=== PATIENT | male | born 1955 | race Caucasian/White ===

== ENCOUNTER 2019-02-01 07:54 | Day surgery (SDC) | payer OTHER ==
[~2019-02-01] VITALS: Ht 177.8 cm; Wt 86.4 kg
[~2019-02-01 07:54] MED LIST: IBUPROFEN
--- NOTE | 2019-02-01 09:45 | NUR ---
02/01/19 0945 Zara Lainez 7ML INDIGO CARMINE USED IN [facility] FOR POLYP REMOVAL. POLYP WASN'T RETRIEVED R/T TRAP NOT ATTACHED.
== END 2019-02-01 10:12 | disposition home or self-care (01) ==
LOC: ORSCSDS 07:54
PROVIDERS: Internal Medicine Gastroenterology
PROC: 0DBH8ZX Excision of Cecum, Via Natural or Artificial Opening Endoscopic, Diagnostic (ICD-10-PCS; principal; 2019-02-01 09:15)
DX: Z12.11 Encounter for screening for malignant neoplasm of colon (principal); D37.4 Neoplasm of uncertain behavior of colon; K57.30 Diverticulosis of large intestine without perforation or abscess without bleeding; K64.8 Other hemorrhoids
CPT/HCPCS: J2405; J2704; J7120

== ENCOUNTER 2022-02-11 07:48 | Day surgery (SDC) | payer OTHER ==
[~2022-02-11] VITALS: Ht 177.8 cm; Wt 87.5 kg
== END 2022-02-11 10:36 | disposition home or self-care (01) ==
LOC: ORSCSDS 07:48
PROVIDERS: Internal Medicine Gastroenterology
PROC: 0DJD8ZZ Inspection of Lower Intestinal Tract, Via Natural or Artificial Opening Endoscopic (ICD-10-PCS; principal; 2022-02-11 09:30)
DX: Z12.11 Encounter for screening for malignant neoplasm of colon (principal); Z86.010 Personal history of colon polyps; K57.50 Diverticulosis of both small and large intestine without perforation or abscess without bleeding; K64.8 Other hemorrhoids; E03.9 Hypothyroidism, unspecified; G47.30 Sleep apnea, unspecified
CPT/HCPCS: J2704

== ENCOUNTER → 2024-12-25 | Outpatient (CLI) | payer MEDICARE ==
[2024-12-25 17:21] LABS: BASOPHILS ABSOLUTE AUTO 0.02 K/mm3 (0.00-0.23); BASOPHILS PERCENT AUTO 0 % (0-2); EOSINOPHILS ABSOLUTE AUTO 0.13 K/mm3 (0.00-0.68); EOSINOPHILS PERCENT AUTO 3 % (0-6); Hematocrit 37.9 % (37.0-53.0); IMMATURE GRAN ABSOLUTE AUTO 0.01 K/mm3 (0.00-0.10); IMMATURE GRAN PERCENT AUTO 0 % (0-1); LYMPHOCYTES ABSOLUTE AUTO 1.28 K/mm3 (0.84-5.20); LYMPHOCYTES PERCENT AUTO 26 % (21-46); MONOCYTES PERCENT AUTO 10 % (4-13); Mean Corpuscular HGB 30.8 pg (26.0-34.0); Mean Corpuscular HGB Conc 34.3 g/dL (31.5-36.5); Mean Corpuscular Volume 90 fL (80-100); Mean Platelet Volume 10.7 fL (9.1-12.4); NEUTROPHILS ABSOLUTE AUTO 3.06 K/mm3 (1.96-9.15); NEUTROPHILS PERCENT AUTO 61 % (41-73); Platelet Count 214 K/mm3 (150-400); RDW Coefficient Variation 13.2 % (11.7-14.2); RDW Standard Deviation 43.2 fL (35.1-46.3); Red Blood Cell Count 4.22 M/mm3 (4.30-5.90)
[2024-12-25 17:58] LABS: Alanine Aminotransfer (ALT/SGP 24 U/L (12-78); Albumin, Blood 3.6 g/dL (3.4-5.0); Albumin/Globulin Ratio 1.2 (0.8-1.8); Alk Phos 67 U/L (50-136); Anion Gap 9 mmol/L (3-11); Aspartate Aminotrans (AST/SGOT 18 U/L (12-37); Bilirubin, Total 0.8 mg/dL (0.1-1.0); Blood Urea Nitrogen 20 mg/dL (8-24); Bun/Creatinine Ratio 24.2 (12.0-20.0); CHOL/HDL RATIO 3.8; CO2, Blood 26 mmol/L (21-32); Calcium, Blood 8.9 mg/dL (8.5-10.1); Chloride, Blood 107 mmol/L (98-108); Cholesterol 177 mg/dL (50-200); Creatinine, Blood 0.83 mg/dL (0.60-1.20); Free Thyroxine 0.88 ng/dL (0.70-1.60); Globulin, Blood 2.9 g/dL (2.2-4.0); Glomerular Filtration Rate 95 (60-); Glucose, Blood 121 mg/dL (70-99); HDL Cholesterol 47 mg/dL (>39); LDL/HDL RATIO 2.2; Low Density Lipoprotein Chol 104 mg/dL (0-110); Potassium, Blood 3.9 mmol/L (3.5-5.5); Sodium, Blood 138 mmol/L (136-145); Total Protein, Blood 6.5 g/dL (6.4-8.2); Triglycerides 131 mg/dL (30-160); Very Low Density Lipoprot Chol 26 mg/dL (6-32)
[2024-12-26 15:52] LABS: PSA, %Free 16.9 %; PSA, Free 0.775 ng/mL
[2024-12-26 21:56] LABS: IMMUNOGLOBULIN A 142 mg/dL (68-408); IMMUNOGLOBULIN G 809 mg/dL (768-1632); IMMUNOGLOBULIN M 27 mg/dL (35-263)
[2024-12-28 07:12] LABS: ALBUMIN 4.02 g/dL (3.75-5.01); ALPHA 1 GLOBULIN 0.24 g/dL (0.19-0.46); ALPHA 2 GLOBULIN 0.53 g/dL (0.48-1.05); BETA GLOBULIN 0.69 g/dL (0.48-1.10); GAMMA 0.73 g/dL (0.62-1.51); TOTAL PROTEIN,SERUM 6.2 g/dL (6.3-8.2)
== END | disposition home or self-care (01) ==
LOC: LAB 15:47 → LAB SHORT 15:47
PROVIDERS: Family Medicine
DX: Z00.00 Encounter for general adult medical examination without abnormal findings (principal); E78.49 Other hyperlipidemia; E03.8 Other specified hypothyroidism; N42.9 Disorder of prostate, unspecified; R97.20 Elevated prostate specific antigen [PSA]
CPT/HCPCS: 80053; 80061; 82784; 84153; 84154; 84155; 84165; 84439; 84443; 85025